=== PATIENT | female | born 1945 | race Caucasian/White ===

== ENCOUNTER 2017-04-04 14:44 | Emergency (ER) | payer OTHER ==
[~2017-04-04] VITALS: Ht 160 cm; Wt 79.5 kg
[2017-04-04 15:45] LABS: HEMATOCRIT 34.3 % (36.0-46.0); MCH 30.5 PG (29.0-34.0); MCHC 34.1 G/DL (30.0-36.0); MCV 89.3 FL (83-99); MEAN PLAT.VOLUME 9.6 uM^3 (9.5-12.4); PLATELET COUNT 247 K/uL (156-360); RBC DIS.WIDTH-CV 12.5 % (11.8-14.6); RBC DIS.WIDTH-SD 40.9 % (39-53); RED BLOOD COUNT 3.84 M/uL (3.80-5.20)
[2017-04-04 15:45] LABS: ADD MIUA? YES; BILIRUBIN NEGATIVE; BLOOD MODERATE; GLUCOSE (STRIP) NEGATIVE; KETONES NEGATIVE; LEUKOCYTES LARGE; NITRITE NEGATIVE; PROTEIN (STRIP) 100; SPECIFIC GRAVITY 1.019 (1.000-1.030); UROBILINOGEN 0.2 MG/DL (0.2-1.0)
[2017-04-04 15:47] LABS: COLOR GREEN ((YELLOW))
[2017-04-04 15:56] LABS: CHLORIDE 105 mEq/L (99-109); POTASSIUM 3.1 mEq/L (3.7-5.4); SODIUM 143 mEq/L (136-147)
[2017-04-04 15:57] LABS: GLUCOSE 100 mg/dL (70-99)
[2017-04-04 15:59] LABS: ANION GAP 13 MEQ/L (2-14)
[2017-04-04 16:01] LABS: GFR ESTIMATE (CALCULATED) 52 mL/min/
[2017-04-04 16:02] LABS: UREA NITROGEN (BUN) 27 mg/dL (9-23)
[2017-04-04 16:02] LABS: BACTERIA 2+ /HPF; CASTS NONE SEEN /LPF; CRYSTALS NONE SEEN; EPITHELIAL CELLS 1+ /HPF; MUCUS NONE SEEN /LPF; RED BLOOD CELLS 15-20 /HPF (0-5); WHITE BLOOD CELLS TNTC /HPF (0-5)
[2017-04-04] MEDS ORDERED: VALIUM5 MG PO (18:21)
[2017-04-04] MEDS ORDERED: KEFLEX500 MG PO (18:21)
[2017-04-04 18:30] VITALS: BP 113/83
== END 2017-04-04 18:30 | disposition home or self-care (01) ==
LOC: EME 14:44
PROVIDERS: Nurse Practitioner Family
DX: N39.0 Urinary tract infection, site not specified (principal); N28.9 Disorder of kidney and ureter, unspecified; E87.6 Hypokalemia; K59.4 Anal spasm; Z86.711 Personal history of pulmonary embolism; Z90.710 Acquired absence of both cervix and uterus; Z87.891 Personal history of nicotine dependence
CPT/HCPCS: 74000; 80048; 81003; 85027; 99281; 99284